=== PATIENT | male | born 1955 | race American Indian/Alaskan Native ===

== ENCOUNTER 2016-05-12 20:51 | Emergency (ER) | payer SELFPAY ==
[2016-05-12 21:10] VITALS: BP 153/105
--- NOTE | 2016-05-13 06:10 | ED Elopement Review ---
ED Pt Elopement review - Call Back decision Pt Call Back Decision: No action required
== END 2016-05-13 02:40 | disposition left against medical advice (07) ==
LOC: ED 20:51
DX: R51 Headache (principal); R42 Dizziness and giddiness; M54.2 Cervicalgia; I10 Essential (primary) hypertension; E78.00 Pure hypercholesterolemia, unspecified; Z53.21 Procedure and treatment not carried out due to patient leaving prior to being seen by health care provider
CPT/HCPCS: 93005; 93010